=== PATIENT | female | born 1960 | race Caucasian/White ===

== ENCOUNTER 2019-03-31 10:23 | Day surgery (SDC) | payer OTHER ==
[~2019-03-31] VITALS: Ht 144.8 cm; Wt 56.7 kg
[~2019-03-31 10:23] MED LIST: ADVIL200 M1 PO; BENADRYL25 MG PO; CELEXA40 MG PO; DESYREL50 MG PO; DIAZEPAM 5 MG5 M1 PO; FLEXERIL PO; HYDROCHLOROTHIA25 M1 PO; HYDROXYZINE HCL50 MG PO; IBUPROFEN 800800 M1 PO; NAPROSYN500 MG PO; NORCO 5-325 TA1 EAC1 PO; NORCO 5-325 TA1 EACH PO; OXYCODONE HCL15 MG PO; PRENATAL DHA200 MG PO; TRAMADOL 50 MG50 MG PO; VISTARIL50 MG PO; VITAMIN B12-FO1 EAC1 PO; VITAMIN E400 UNI2 PO; WELLBUTRIN SR150 MG PO
[2019-03-31 11:59] VITALS: BP 151/88
[2019-03-31 15:35] VITALS: BP 151/88
--- NOTE | 2019-04-05 18:13 | O ---
[facility] [place] [address] OPERATIVE REPORT Name: LANDEROSRINKUSHARON LION [id number] Admission: 03/31/19 Attend Phys: Terry Cline MD Discharge: 03/31/19 Date of : 60 Report #: [id number] THIS REPORT FOR: //name// CC: FAM unknown Terry Cline DATE OF SERVICE: 03/31/2019 SERVICE: Orthopedics. FACILITY: [facility]. SURGEON: Terry Cline M.D. HOUSING INSPECTORS: Shraddha Pollack N.P. PREOPERATIVE DIAGNOSES: 1. Displaced left 3-part distal radius fracture. 2. Fibrous malunion left distal radius fracture. POSTOPERATIVE DIAGNOSES: 1. Displaced left 3-part distal radius fracture. 2. Fibrous malunion left distal radius fracture. PROCEDURES: 1. Open reduction and internal fixation of left 3-part distal radius fracture. 2. Fibrous malunion takedown, left distal radius. COMPLICATIONS: None. DRAINS: None. SPECIMENS: None. ANESTHESIA: General. FINDINGS: Reddell distal radius plate. HISTORY AND INDICATIONS: The patient is a 58-year-old female who sustained a fall, which resulted in a displaced left distal radius fracture. She presented to the Emergency Room initially where she underwent closed reduction and then presented to the Orthopedic Clinic for initial consultation late. She had an original appointment, but then canceled and showed up approximately 2 weeks post-injury. She had a significantly displaced fracture. At that point, she was indicated for surgical treatment. We described the risks, benefits, alternatives, and indication of surgery with the patient and she gave full [facility] [address] [place] [address] OPERATIVE REPORT Name: LANDEROSSHARON LION Room #: DEP [facility].[place].#: [id number] Admission: 03/31/19 Attend Phys: Terry Cline MD Discharge: 03/31/19 Date of : 60 Report #: [id number] informed consent and wished to proceed. She was scheduled for the next business day; however, the patient was a no-show for the surgery and this then ultimately led to approximately a week long delay from initial presentation to clinic to fit surgery. The fracture is now approximately 3 weeks out and has proceeded to become a fibrous malunion due to its displaced nature; however, she had a poor outcome with nonsurgical treatment to a displaced left distal radius fracture in the past at an outside facility and so we felt that a more anatomic alignment was most appropriate for her and that despite the duration from injury that surgical repair would be most appropriate. I explained the associated increased difficulty and increased risks with now malunion takedown. She gave full informed consent and wished to proceed. Risks include but not limited to pain, bleeding, infection, injury to nerves or blood vessels, malunion, nonunion, need for further surgery including revision as well as hardware removal as well as complications related to anesthesia such as stroke, heart attack, pulmonary complications, thromboembolic disease and . Despite these risks, she wished to proceed. PROCEDURE IN DETAIL: After the left upper extremity was correctly identified in the preoperative holding area as the operative extremity, the patient was taken to the operating room where general anesthesia was induced without complication. She was padded appropriately. Prophylactic antibiotics were administered at appropriate time. A tourniquet was applied to the left upper extremity and the left arm was prepped and draped in standard sterile fashion. Antibiotics had been administered at appropriate time. Time-out procedure was performed. Esmarch was used. Tourniquet was inflated to 250 mmHg. Total tourniquet time was approximately 70 minutes. The increased tourniquet time was required due to the malunion that required additional takedown. A volar approach was made to the distal radius via standard anterior incision along the FCR tendon and a trans-FCR tendon sheath incision was then made allowing access to the deep level and then the FPL and the pronator quadratus muscles were retracted in a typical fashion. The fracture was exposed. There was fibrous union present and so initially the fracture was only mildly mobile, but it was significantly displaced. I used a [place] elevator to mobilize the individual fracture fragments after adequate exposure had been achieved and then had to perform some additional soft tissue releases along the radial border as well as dorsally including the dorsal periosteum where some fibrous union was present. The rongeur was used to take down some of the fibrous malunion to allow for adequate mobility. The fracture was significantly displaced dorsally and radially and the initial reduction maneuver did not allow adequate reduction because of the fracture callus that had developed since the injury time. I had to remove this portion in order to adequately translate the distal segment ulnarly and then did sew into an anatomic position and then placed the plate on to the shaft. We selected a Reddell narrow three-shaft hole distal radius plate and then provisionally pinned it into position. I did perform some minor adjustments in terms of the plate position in order to have the optimal position [facility] [address] [place] [address] OPERATIVE REPORT Name: SHARON LANDEROS Room #: [place] [facility]#: [id number] Admission: 03/31/19 Attend Phys: Terry Cline MD Discharge: 03/31/19 Date of : 60 Report #: [id number] and then provisionally pinned it into position and then tightened the shaft screw and then placed the initial distal screws. C-arm was used in multiple planes throughout the procedure. After I was happy with the position of all of the distal row screws, I then completed the distal fixation with locking screws and then ultimately fixed the shaft screws accordingly. X-rays were taken throughout the procedure. After completion of the fixation, I checked AP and lateral views in line with the articular surface to ensure that all screws were subchondral. No screws were penetrating the dorsal cortex of the distal segment. Good fixation and alignment was achieved with episcopal of the radial inclination lengths and volar tilt. The wound was copiously irrigated. The pronator quadratus was repaired with 0 Vicryl suture in [id number] fashion and then the tourniquet was let down. Hemostasis was achieved. The skin layer was closed with 2-0 Vicryl followed by running 4-0 subcuticular Monocryl and Steri-Strips. A sterile dressing was applied followed by a short arm splint. The patient was awakened from anesthesia and taken to recovery room in stable condition. No complications. All counts were correct. Please note that the malunion did in fact result in added difficulty with the additional work required to take down the fracture and get adequate reduction. <ELECTRONICALLY SIGNED> By: Terry Cline MD 04/05/19 1813 [id number] Terry Cline MD /nt
== END 2019-03-31 16:49 | disposition home or self-care (01) ==
LOC: TBA 10:23 → OR 10:23
DX: S52.572P Other intraarticular fracture of lower end of left radius, subsequent encounter for closed fracture with malunion (principal); M25.732 Osteophyte, left wrist; F31.9 Bipolar disorder, unspecified; F41.9 Anxiety disorder, unspecified; F17.210 Nicotine dependence, cigarettes, uncomplicated; Z98.890 Other specified postprocedural states; Z79.899 Other long term (current) drug therapy; Z88.8 Allergy status to other drugs, medicaments and biological substances; Z79.891 Long term (current) use of opiate analgesic; V87.8XXD Person injured in other specified noncollision transport accidents involving motor vehicle (traffic), subsequent encounter
CPT/HCPCS: 50010; 50101; 50386; 55430; 56525; 56526; 56528; 57091; 57178; 62110; 62900; 64039; 70005

== ENCOUNTER 2019-04-11 23:03 | Emergency (ER) | payer OTHER ==
[~2019-04-11] VITALS: Ht 144.8 cm; Wt 77.1 kg
[2019-04-12 00:26] LABS: ABSOLUTE NEUTROPHILS 7.8 thou/uL (1.4-8.2); CREATININE 0.6 mg/dL (0.6-1.0); EOSINOPHILS 1.4 % (0.0-3.0); HEMATOCRIT 37.7 % (37.0-47.0); HEMOGLOBIN 12.2 gm/dL (12.0-15.0); LYMPHOCYTES 20.8 % (24.0-44.0); MCH 27.6 pg (26.0-34.0); MCHC 32.3 g/dL (28.0-37.0); MCV 85.5 fL (80.0-100.0); MONOCYTES 4.3 % (1.0-8.0); PLATELET COUNT 476 thou/uL (150-400); POLYS 72.5 % (36.0-66.0); POTASSIUM 4.5 mmol/L (3.5-5.1); RBC 4.41 mil/uL (4.20-5.00); WBC 10.7 thou/uL (4.0-11.0)
[2019-04-12 00:32] LABS: TOTAL BILIRUBIN 0.4 mg/dL (<0.1-1.0); TOTAL PROTEIN 7.9 g/dL (6.4-8.2)
[2019-04-12 00:50] LABS: URINE BILIRUBIN NEGATIVE (Negative); URINE BLOOD NEGATIVE (Negative); URINE CLARITY CLEAR; URINE COLOR YELLOW; URINE GLUCOSE-RANDOM* NEGATIVE (Negative); URINE KETONES NEGATIVE (Negative); URINE LEUKOCYTES-REFLEX NEGATIVE (Negative); URINE NITRITE-REFLEX NEGATIVE (Negative); URINE PROTEIN (DIPSTICK) NEGATIVE (Negative); URINE UROBILINOGEN 0.2 E.U./dl (0.2-1.0)
[2019-04-12 03:32] VITALS: BP 135/87
== END 2019-04-12 03:41 | disposition home or self-care (01) ==
LOC: ER 23:03
PROVIDERS: Emergency Medicine
DX: R10.32 Left lower quadrant pain (principal); F31.9 Bipolar disorder, unspecified; F17.210 Nicotine dependence, cigarettes, uncomplicated; Z98.890 Other specified postprocedural states; Z88.5 Allergy status to narcotic agent